=== PATIENT | male | born 1995 | race Caucasian/White ===

== ENCOUNTER 2024-04-29 04:02 | Emergency (ER) | payer SELFPAY ==
[~2024-04-29] VITALS: Ht 167.6 cm; Wt 78.0 kg
[2024-04-29 04:05] VITALS: O2SAT 99
[2024-04-29 05:09] LABS: BASOPHILS % 0.5 % (0.0-2.0); EOSINOPHILS % 0.7 % (0.0-5.0); HEMATOCRIT. 45.4 % (42.0-52.0); HEMOGLOBIN. 14.9 g/dL (14.0-18.0); LYMPHOCYTES % 21.7 % (20.0-50.0); MEAN CORPUSCULAR HEMOGLOBIN 27.2 pg (28.0-32.0); MEAN CORPUSCULAR HGB CONC 32.8 g/dL (31.0-37.0); MEAN CORPUSCULAR VOLUME 82.8 fL (80.0-94.0); MEAN PLATELET VOLUME 8.3 fl (7.4-10.4); MONOCYTES % 7.8 % (2.0-8.0); NEUTROPHILS % 69.3 % (40.0-76.0); PLATELET 233 x1000/uL (130-400); RED BLOOD CELL COUNT 5.48 mill/uL (4.7-6.1); RED CELL DISTRIBUTION WIDTH 13.8 % (11.6-14.6); WHITE BLOOD COUNT 9.9 x1000/uL (4.5-11.0)
[2024-04-29 05:15] LABS: CHLORIDE 107 mEq/L (98-107); POTASSIUM 3.4 mEq/L (3.5-5.1); SODIUM 140 mEq/L (136-145)
[2024-04-29 05:16] LABS: CARBON DIOXIDE 23 mEq/L (21-32)
[2024-04-29 05:17] LABS: CALCIUM 9.6 mg/dL (8.7-10.4)
[2024-04-29 05:21] LABS: GLUCOSE 91 mg/dL (70-105)
[2024-04-29 05:22] LABS: ETHANOL BLOOD 213 mg/dL (<10); TROPONIN I HIGH SENSITIVITY 19 ng/L (3.0-53); UREA NITROGEN BLOOD 9 mg/dL (9-23)
[2024-04-29 05:23] LABS: ACETAMINOPHEN < 2 ug/mL (10-30)
[2024-04-29 06:24] VITALS: TEMP 97.5
[2024-04-29 07:38] LABS: TROPONIN I HIGH SENSITIVITY 22 ng/L (3.0-53)
[2024-04-29 08:00] VITALS: BP 108/71; PULSE 82; RESP 17
== END 2024-04-29 14:39 | disposition home or self-care (01) ==
LOC: ER 04:02
DX: F10.129 Alcohol abuse with intoxication, unspecified (principal); F19.90 Other psychoactive substance use, unspecified, uncomplicated; Y90.7 Blood alcohol level of 200-239 mg/100 ml
CPT/HCPCS: 80048; 80307; 80329; 80320; 85025; 84484; 36415; 71045; 82803; 99284; Z7610 ×3; G0480